=== PATIENT | male | born 1975 | race Caucasian/White ===

== ENCOUNTER 2018-09-05 19:49 | Emergency (ER) ==
[2018-09-05 19:56] VITALS: BP 141/90; TEMP 99.9; BMI 32.3
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
[2018-09-05] MEDS ORDERED: NORFLEX IM STA (20:46)
[2018-09-05] MEDS ORDERED: TORADOL IM STA (20:46)
--- NOTE | 2018-09-05 20:49 | ED.PDOC ---
General ED Provider: Dr. JEFFREY BURRELL-ER Chief Complaint: Neck Injury Stated Complaint: my neck hurts and it runs down my left shoulder and arm Time Seen by Physician: 19:55 Mode of Arrival: Walk-In Information Source: Patient Exam Limitations: No limitations Nursing and Triage Documentation Reviewed and Agree: Yes Does patient meet sepsis criteria?: No System Inflammatory Response Syndrome: Not Applicable Sepsis Protocol: For patient's 13 years and over: Temp is 96.8 and below OR 101 and greater Pulse >90 BPM Resp >20/minute Acutely Altered Mental Status Are patient's symptoms suggestive of a new infection, such as: -Pneumonia -Skin, Soft Tissue -Endocarditis -UTI -Bone, Joint Infection -Implantable Device -Acute Abdominal Infection -Wound Infection -Meningitis -Blood Stream Catheter Infection -Unknown Musculoskeletal Complaint Exam - Neck Pain Complaint/Exam Mechanism of Injury: Reports: Trauma Onset/Duration: 30 ng Symptoms Are: Still present Timing: Constant Initial Severity: Mild Current Severity: Mild Location: Reports: Discrete Character: Reports: Dull, Aching, Spasmodic Aggravating: Reports: Position Alleviating: Reports: Position Associated Signs and Symptoms: Denies: Swelling, Redness, Bruising, Fever, Nuchal rigidity, Weakness, Headache, Paresthesia Meningitis Risk Factors: Reports: None Cervical Spine Injury Risk Factors: Reports: None Carotid Bruit Present: No Pain on Passive Flexion: Yes Positive Kernig's Sign: No ROM Limited In: Present: Flexion, Extension Pain Located at: left posterior neck Tenderness: Present: Midline Radiates to: Present: Left arm Focal Weakness: Present: None Focal Sensory Loss: Reports: None Differential Diagnoses: Arthritis, Sprain, Strain Review of Systems - Review Of Systems Constitutional: Reports: No symptoms Eyes: Reports: No symptoms Ears, Nose, Mouth, Throat: Reports: No symptoms Respiratory: Reports: No symptoms Cardiac: Reports: No symptoms GI: Reports: No symptoms : Reports: No symptoms Musculoskeletal: Reports: Muscle pain, Neck pain Skin: Reports: No symptoms Neurological: Reports: No symptoms Endocrine: Reports: No symptoms Hematologic/Lymphatic: Reports: No symptoms All Other Systems: Reviewed and Negative Past Medical History - Past Medical History Previously Healthy: Yes Endocrine: Reports: Unknown Cardiovascular: Reports: Unknown Respiratory: Reports: Unknown Hematological: Reports: Unknown Gastrointestinal: Reports: Unknown Genitourinary: Reports: Unknown Neuro/Psych: Reports: Unknown Musculoskeletal: Reports: Unknown Cancer: Reports: Unknown - Surgical History General Surgical History: Reports: Unknown - Family History Family History: Reports: Unknown - Social History Smoking Status: Never smoker Hx Substance Use: No Alcohol Screening: None - Immunizations Tetanus Shot up to Date: Yes Physical Exam - Physical Exam Appearance: Well-appearing, No pain distress, Well-nourished Pain Distress: Moderate Eyes: DIANELYS, EOMI, Conjunctiva clear ENT: Ears normal, Nose normal, Oropharynx normal Neck: Supple Respiratory: Airway patent, Breath sounds clear, Breath sounds equal, Respirations nonlabored Cardiovascular: RRR GI/: Soft, Nontender, No masses, Bowel sounds normal, No Organomegaly Musculoskeletal: Limited ROM Skin: Warm Neurological: Sensation intact Psychiatric: Affect appropriate, Mood appropriate Interpretation - Radiology Interpretation Radiology Interpretation By: Radiologist Radiology Results: Positive Exam Interpreted: CT Scan Critical Care Note - Critical Care Note Total Time (mins): 0 Course - Course Orders, Labs, Meds: Orders Category Date Time Status Ketorolac Tromethamine [Toradol] MEDS 09/05/18 20:46 Stat 60 mg IM ONCE STA Orphenadrine Citrate [Norflex] MEDS 09/05/18 20:46 Stat 60 mg IM ONCE STA CT CERVICAL SPINE W/O CONTRAST Stat RADS 09/05/18 20:[address] HEAD W/O CONTRAST Stat RADS 09/05/18 20:[address] SHOULDER LEFT W/O CONTRAST Stat RADS 09/05/18 20:02 Completed Vital Signs: Temp Pulse Resp BP Pulse Ox 09/05/18 19:50 99.9 F H 102 H 18 141/90 H 98 Departure - Departure Time of Disposition: 20:49 Disposition: HOME SELF-CARE Discharge Problem: Injury of neck Instructions: Neck Pain (ED), Cervical Spinal Stenosis (ED) Condition: Good Pt referred to PMD for follow-up: Yes IPMP verified?: No Additional Instructions: norco 7.5mg q 4hrs prn pain #12---medrol dose pack0---keep f/u with your doctor this Allergies/Adverse Reactions: Allergies No Known Allergies Allergy (Unverified 09/05/18 19:53) Home Medications: Ambulatory Orders 1 [No Reported Medications] 09/05/18 Disposition Discussed With: Patient
== END 2018-09-05 21:13 | disposition home or self-care (01) ==
LOC: ED 19:49
DX: M54.2 Cervicalgia (principal); M25.512 Pain in left shoulder; M79.602 Pain in left arm; V89.2XXA Person injured in unspecified motor-vehicle accident, traffic, initial encounter
CPT/HCPCS: 96372; 99283